=== PATIENT | male | born 1970 | race African-American/Black ===

== ENCOUNTER 2018-07-09 15:46 | Inpatient (IN) | payer OTHER ==
[2018-07-09 21:47] VITALS: BMI 27.6
--- NOTE | 2018-07-09 22:13 | HP ---
COWS - Scale Resting Pulse: 0= [place] 80 or Below Sweatin=Flushed/Facial Moisture Restless Observation: 0= Sits Still Pupil Size: 0= Normal to Room Light Bone or Joint Aches: 4=Acute Joint/Muscle Pain Runny Nose/ Eye Tearin= Runny Nose/Eyes GI Upset > 30mins: 2= Nausea/Diarrhea (diarrhea x 2) Tremor Observation: 2= Slight Tremor Visible Yawning Observation: 1= 1-2x During Session Anxiety or Irritability: 2=Irritable/Anxious Goose Flesh Skin: 3=Piloerection COWS Score: 18 CIWA Score Nausea/Vomitin-Mild Nausea/No Vomiting (vomiting x 2) Muscle Tremors: 3 Anxiety: 4-Mod. Anxious/Guarded Agitation: 3 Paroxysmal Sweats: 2 Orientation: 1-Uncertain about Date Tacttile Disturbances: 0-None Auditory Disturbances: 0-None Visual Disturbances: 0-None Headache: 3-Moderate CIWA-Ar Total Score: 17 - Admission Criteria OASAS Guidelines: Admission for Medically Managed Detox: Requires at least one of the followin. CIWA greater than 12 2. Seizures within the past 24 hours 3. Delirium tremens within the past 24 hours 4. Hallucinations within the past 24 hours 5. Acute intervention needed for co occurring medical disorder 6. Acute intervention needed for co occurring psychiatric disorder 7. Severe withdrawal that cannot be handled at a lower level of care (continued vomiting, continued diarrhea, abnormal vital signs) requiring intravenous medication and/or fluids 8. Admission ROS [facility] Chief Complaint: Heroin and alcohol withdrawal symptoms Allergies/Adverse Reactions: Allergies Allergy/AdvReac Type Severity Reaction Status Date / Time No Known Drug Allergies Allergy Verified 07/09/18 21:39 seafood Allergy Severe Rash Uncoded 07/09/18 21:39 History of Present Illness: 48 years old male with a long history of alcohol and heroin dependence is seeking admission to detox. Patient reports that he was at [facility] a year ago and reports insignificant period of sobriety. This is his first time and first admission to [facility]. He has medical history of asthma, hypertension and depression. He reports suicide attempt in 2015 and denies suicidal ideation at this time. Exam Limitations: No Limitations - Ebola screening Have you traveled outside of the country in the last 21 days: No Have you had contact with anyone from an Ebola affected area: No Have you been sick,other than usual withdrawal symptoms: No Do you have a fever: No - Review of Systems Constitutional: Chills, Loss of Appetite, Malaise, Night Sweats, Changes in sleep, Weakness EENT: reports: Nose Congestion Respiratory: reports: No Symptoms reported Cardiac: reports: No Symptoms Reported GI: reports: Diarrhea, Nausea, Poor Appetite, Poor Fluid Intake, Vomiting : reports: No Symptoms Reported Musculoskeletal: reports: Back Pain, Joint Pain, Muscle Pain Integumentary: reports: Dryness, Flushing Neuro: reports: Headache, Tremors Endocrine: reports: No Symptoms Reported Hematology: reports: No Symptoms Reported Psychiatric: reports: Mood/Affect Appropiate, Anxious Other Systems: Reviewed and Negative Patient History - Patient Medical History Hx Anemia: No Hx Asthma: Yes (Albuterol) Hx Chronic Obstructive Pulmonary Disease (COPD): No Hx Cancer: No Hx Cardiac Disorders: No Hx Congestive Heart Failure: No Hx Hypertension: Yes (Clonidine ) Hx Hypercholesterolemia: No Hx Pacemaker: No HX Cerebrovascular Accident: No Hx Seizures: No Hx Dementia: No Hx Diabetes: No Hx Gastrointestinal Disorders: No Hx Liver Disease: No Hx Genitourinary Disorders: No Hx Sexually Transmitted Disorders: No Hx Renal Disease (ESRD): No Hx Thyroid Disease: No Hx Human Immunodeficiency Virus (HIV): No (Negative 2017) Hx Hepatitis C: No Hx Depression: Yes (Trazodone) Hx Suicide Attempt: Yes (Attempt 2014, denies suicidal ideation at this time) Hx Bipolar Disorder: Yes (Seroquel) Hx Schizophrenia: No - Patient Surgical History Past Surgical History: No - PPD History Previous Implant?: Yes Documented Results: Negative w/o proof Implanted On Prior R Admission?: No PPD to be Administered?: Yes - Reproductive History Patient is a Female of Child Bearing Age (11 -55 yrs old): No (Male) - Smoking Cessation Smoking history: Current every day smoker Have you smoked in the past 12 months: Yes Aproximately how many cigarettes per day: 20 Hx Chewing Tobacco Use: No Initiated information on smoking cessation: Yes 'Breaking Loose' booklet given: 07/09/18 - Substance & Tx. History Hx Alcohol Use: Yes Hx Substance Use: Yes Substance Use Type: Alcohol, Heroin, Opiates - Substances abused Heroin Substance route: Inhalation Frequency: Daily Amount used: 10 bags Age of first use: 20 Date of last use: 07/09/18 Alcohol Substance route: Oral Frequency: Daily Amount used: radha 1/2 pint, beer 2 of 24 oz Age of first use: 13 Date of last use: 07/08/18 Family Disease History - Family Disease History Family History: Denies Admission Physical Exam [facility] - Vital Signs Vital Signs: Vital Signs - 24 hr 07/09/18 21:42 Temperature 97.9 F Pulse Rate 63 Respiratory 16 Rate Blood Pressure 134/93 - Physical General Appearance: Yes: Moderate Distress, Tremorous, Irritable, Anxious HEENTM: Yes: Normal ENT Inspection, Normal Voice, SARAH Respiratory: Yes: Lungs Clear, Normal Breath Sounds, No Respiratory Distress Neck: Yes: Supple Breast: Yes: Breast Exam Deferred Cardiology: Yes: Regular Rate Abdominal: Yes: Normal Bowel Sounds, Soft Genitourinary: Yes: Within Normal Limits Back: Yes: Normal Inspection Musculoskeletal: Yes: Back pain, Muscle Pain Extremities: Yes: Tremors Neurological: Yes: Alert, Normal Mood/Affect Integumentary: Yes: Warm Lymphatic: Yes: Within Normal Limits - Diagnostic (1) Asthma Current Visit: Yes Status: Chronic Qualifiers: Asthma severity: mild Asthma persistence: intermittent (2) Hypertension Current Visit: Yes Status: Chronic Qualifiers: Hypertension type: essential hypertension Qualified Code(s): I10 - Essential (primary) hypertension (3) Depression Current Visit: Yes Status: Chronic Qualifiers: Depression Type: unspecified Qualified Code(s): F32.9 - Major depressive disorder, single episode, unspecified (4) Nicotine dependence Current Visit: Yes Status: Chronic Qualifiers: Nicotine product type: cigarettes Substance use status: uncomplicated Qualified Code(s): F17.210 - Nicotine dependence, cigarettes, uncomplicated (5) Opioid dependence with withdrawal Current Visit: Yes Status: Acute (6) Alcohol dependence with uncomplicated withdrawal Current Visit: Yes Status: Acute Cleared for Admission [facility] - Detox or Rehab [facility] Level of Care: Medically Managed Detox Regimen/Protocol: Methadone/Librium Inpatient Rehab Admission - Rehab Decision to Admit Inpatient rehab admission?: No
[2018-07-09] MEDS ORDERED: MAGNESIUM HYDROX 2400MG/30ML ORAL SUSPENSION 30 ML CUP PO PRN (22:22)
[2018-07-09] MEDS ORDERED: MELATONIN 5 MG TABLETS PO PRN (22:22)
[2018-07-09] MEDS ORDERED: METHOCARBAMOL 500 MG TABLET PO PRN (22:22)
[2018-07-09] MEDS ORDERED: BISMUTH SUBSALICYLATE 524 MG/30 ML UD PO PRN (22:22)
[2018-07-09] MEDS ORDERED: chlordiazePOXIDE HCL 25 MG CAPSULE PO PRN (22:22)
[2018-07-09] MEDS ORDERED: NICOTINE POLACRILEX 2 MG GUM BUC PRN (22:22)
[2018-07-09] MEDS ORDERED: cloNIDine HCL 0.1 MG TABLET PO PRN (22:22)
[2018-07-09] MEDS ORDERED: hydrOXYzine PAMOATE 25 MG CAPSULE (FP) PO PRN (22:22)
[2018-07-09] MEDS ORDERED: ACETAMINOPHEN 325 MG TABLET (FP) PO PRN ×2 (22:22)
[2018-07-09] MEDS ORDERED: MENTHOL/PHENOL 1 EACH UD MM PRN (22:22)
[2018-07-09] MEDS ORDERED: IBUPROFEN 400 MG TABLET (FP) PO PRN (22:22)
[2018-07-09] MEDS ORDERED: MAGNESIUM CITRATE 300 ML BOTTLE PO PRN (22:22)
[2018-07-09] MEDS ORDERED: MAG HYDROX/AL HYDROX/SIMETH 30 ML UNIT-DOSE CUP PO PRN (22:22)
[2018-07-09] MEDS ORDERED: ALBUTEROL SO4 8 GM HFA INHALER IH PRN (22:30)
[2018-07-09] MEDS ORDERED: METHADONE HCL 10 MG TABLET (FOR DETOX USE ONLY) PO ONE (23:00)
[2018-07-09] MEDS: chlordiazePOXIDE HCL 25 MG CAPSULE PO SCH (23:39)
[2018-07-10] MEDS: chlordiazePOXIDE HCL 25 MG CAPSULE PO SCH ×4 (06:18→22:07)
[2018-07-10] MEDS ORDERED: METHADONE HCL 10 MG TABLET (FOR DETOX USE ONLY) PO ONE (10:00)
--- NOTE | 2018-07-10 10:31 | EKG ---
Test Reason : Blood Pressure : / mmHG Vent. Rate : 054 BPM Atrial Rate : 054 BPM P-R Int : 128 ms QRS Dur : 112 ms QT Int : 434 ms P-R-T Axes : 075 068 052 degrees QTc Int : 411 ms SINUS BRADYCARDIA POSSIBLE LEFT ATRIAL ENLARGEMENT INCOMPLETE RIGHT BUNDLE BRANCH BLOCK BORDERLINE ECG NO PREVIOUS ECGS AVAILABLE Confirmed by ESTHER SCOTT MD ([id number]) on 07/10/2018 10:31:22 AM Referred By: Confirmed By:ESTHER SCOTT MD
[2018-07-10] MEDS: cloNIDine HCL 0.1 MG TABLET PO SCH ×2 (10:38→22:07)
[2018-07-10] MEDS: NICOTINE 14 MG/24 HOURS TOPICAL PATCH TD SCH (10:39)
[2018-07-10] MEDS: PRENATAL VITAMINS W/ FOLIC ACID TABLET (FP) PO SCH (10:41)
[2018-07-10] MEDS ORDERED: cloNIDine HCL 0.1 MG TABLET PO PRN (10:53)
[2018-07-10] MEDS ORDERED: hydrOXYzine PAMOATE 25 MG CAPSULE (FP) PO PRN (10:53)
--- NOTE | 2018-07-10 10:56 | PN ---
[facility] CIWA - CIWA Score Nausea/Vomitin-Mild Nausea/No Vomiting Muscle Tremors: 2 Anxiety: 1-Mildly Anxious Agitation: 1-Slight > Activity Paroxysmal Sweats: 1-Minimal Palms Moist Orientation: 0-Oriented Tacttile Disturbances: 0-None Auditory Disturbances: 0-None Visual Disturbances: 0-None Headache: 0-None Present CIWA-Ar Total Score: 6 [facility] COWS - Scale Resting Pulse: 1= [place] 81-100 Sweatin= Chills/Flushing Restless Observation: 1= Difficult to Sit Still Pupil Size: 1= Pupils >than Normal Bone or Joint Aches: 1= Mild Discomfort Runny Nose/ Eye Tearin= Nasal Congestion GI Upset > 30mins: 1= Stomach Cramp Yawning Observation: 0= None Anxiety or Irritability: 1=Feels Anxious/Irritable Goose Flesh Skin: 3=Piloerection [facility] Progress Note (SOAP) Subjective: pt states he feels like he needs more methadone for OUD- day #2 of admission O: Vital Signs - 24 hr 07/09/18 07/09/18 07/10/18 21:42 23:39 00:30 Temperature 97.9 F 99.1 F Pulse Rate 63 57 L Respiratory 16 18 18 Rate Blood Pressure 134/93 148/86 07/10/18 07/10/18 07/10/18 03:30 05:00 10:20 Temperature 96 F L 98.4 F Pulse Rate 71 72 Respiratory 18 18 18 Rate Blood Pressure 105/67 118/65 labs pending a/p: continue alcohol and heroin detox protocols- pt has prn med for symptomatic treatment
[2018-07-10 12:04] LABS: HEMATOCRIT 45.3 % (35.4-49); MCH 29.5 pg (25.7-33.7); MCHC 33.1 g/dl (32.0-35.9); PLATELET COUNT 273 K/MM3 (134-434); RBC 5.09 M/mm3 (4.00-5.60); RDW 13.6 % (11.9-15.9); WHITE BLOOD COUNT 8.2 K/mm3 (4.0-10.0)
[2018-07-10 12:07] LABS: ALBUMIN 3.6 g/dl (3.4-5.0); ALK PHOS 78 U/L (45-117); ANION GAP 8 MMOL/L (8-16); BILIRUBIN,TOTAL 0.4 mg/dL (0.2-1); BLOOD UREA NITROGEN 9 mg/dL (7-18); CALCIUM 9.3 mg/dL (8.5-10.1); CHLORIDE 105 mmol/L (98-107); CO2 28 mmol/L (21-32); CREATININE 1.1 mg/dL (0.55-1.3); GLUCOSE,RANDOM 158 mg/dL (74-106); POTASSIUM 3.7 mmol/L (3.5-5.1); SGOT/AST 14 U/L (15-37); SGPT/ALT 20 U/L (13-61); SODIUM 140 mmol/L (136-145); TOT PROT 6.7 g/dl (6.4-8.2)
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
[2018-07-10] MEDS ORDERED: QUEtiapine FUMARATE 100 MG TABLET (FP) PO SCH (22:00)
[2018-07-10] MEDS: THIAMINE HCL 100 MG TABLET (FP) PO SCH (22:07)
[2018-07-10] MEDS: QUEtiapine FUMARATE 50 MG TABLET PO SCH (22:07)
[2018-07-11] MEDS: chlordiazePOXIDE HCL 25 MG CAPSULE PO SCH ×3 (05:43→17:12)
[2018-07-11] MEDS ORDERED: METHADONE HCL 10 MG TABLET (FOR DETOX USE ONLY) PO ONE (10:00)
[2018-07-11] MEDS: NICOTINE 14 MG/24 HOURS TOPICAL PATCH TD SCH (10:46)
[2018-07-11] MEDS: cloNIDine HCL 0.1 MG TABLET PO SCH ×2 (10:46→21:57)
[2018-07-11] MEDS: PRENATAL VITAMINS W/ FOLIC ACID TABLET (FP) PO SCH (10:46)
--- NOTE | 2018-07-11 11:34 | PN ---
[facility] CIWA - CIWA Score Nausea/Vomitin-No Nausea/No Vomiting Muscle Tremors: 3 Anxiety: 3 Agitation: 3 Paroxysmal Sweats: 1-Minimal Palms Moist Orientation: 0-Oriented Tacttile Disturbances: 0-None Auditory Disturbances: 0-None Visual Disturbances: 0-None Headache: 0-None Present CIWA-Ar Total Score: 10 [facility] COWS - Scale Resting Pulse: 0= [place] 80 or Below Sweatin= Chills/Flushing Restless Observation: 0= Sits Still Pupil Size: 0= Normal to Room Light Bone or Joint Aches: 1= Mild Discomfort Runny Nose/ Eye Tearin= Nasal Congestion GI Upset > 30mins: 0= None Tremor Observation of Outstretched Hands: 1= Tremor [place], Not Seen Yawning Observation: 2= >3x During Session Anxiety or Irritability: 1=Feels Anxious/Irritable Goose Flesh Skin: 0=Smooth Skin COWS Score: 7 [facility] Progress Note (SOAP) Subjective: tired sweats chills last night Objective: 07/11/18 11:32 Vital Signs Temperature 97.8 F 07/11/18 09:03 Pulse Rate 62 07/11/18 09:03 Respiratory Rate 18 07/11/18 09:03 Blood Pressure 109/52 L 07/11/18 09:03 O2 Sat by Pulse Oximetry (%) Laboratory Tests 07/10/18 07/10/18 07/10/18 07:30 07:30 07:30 WBC 8.2 RBC 5.09 Hgb 15.0 Hct 45.3 MCV 89.0 MCH 29.5 MCHC 33.1 RDW 13.6 Plt Count 273 MPV 9.0 Sodium 140 Potassium 3.7 Chloride 105 Carbon Dioxide 28 Anion Gap 8 BUN 9 Creatinine 1.1 Creat Clearance w eGFR 70.86 Random Glucose 158 H Calcium 9.3 Total Bilirubin 0.4 AST 14 L ALT 20 Alkaline Phosphatase 78 Total Protein 6.7 Albumin 3.6 RPR Titer Nonreactive aaox3 ambulating no acute distress Assessment: 07/11/18 11:33 withdrawals Plan: continue detox increase fluids
[2018-07-11] MEDS: QUEtiapine FUMARATE 50 MG TABLET PO SCH (21:57)
[2018-07-11] MEDS: THIAMINE HCL 100 MG TABLET (FP) PO SCH (21:58)
[2018-07-11] MEDS: chlordiazePOXIDE HCL 10 MG CAPSULE PO SCH (22:00)
[2018-07-11] MEDS ORDERED: chlordiazePOXIDE HCL 10 MG CAPSULE PO PRN (23:00)
[2018-07-12] MEDS: chlordiazePOXIDE HCL 10 MG CAPSULE PO SCH ×3 (05:40→17:43)
[2018-07-12] MEDS ORDERED: METHADONE HCL 10 MG TABLET (FOR DETOX USE ONLY) PO ONE (10:00)
[2018-07-12] MEDS: PRENATAL VITAMINS W/ FOLIC ACID TABLET (FP) PO SCH (10:19)
[2018-07-12] MEDS: NICOTINE 14 MG/24 HOURS TOPICAL PATCH TD SCH (10:20)
[2018-07-12] MEDS: cloNIDine HCL 0.1 MG TABLET PO SCH ×2 (10:20→22:10)
[2018-07-12] MEDS: THIAMINE HCL 100 MG TABLET (FP) PO SCH (22:10)
[2018-07-12] MEDS: QUEtiapine FUMARATE 50 MG TABLET PO SCH (22:10)
[2018-07-12] MEDS ORDERED: chlordiazePOXIDE HCL 10 MG CAPSULE PO SCH (23:00)
[2018-07-13] MEDS ORDERED: METHADONE HCL 5 MG TABLET (FOR DETOX USE ONLY) PO ONE (06:00)
--- NOTE | 2018-07-13 08:52 | DS ---
[facility] Detox Discharge Summary Admission Date: 07/09/18 Discharge Date: 07/13/18 - History Present History: Alcohol Dependence, Opioid Dependence - Physical Exam Results Vital Signs: Vital Signs Temperature 97.2 F L 07/13/18 06:53 Pulse Rate 68 07/13/18 06:53 Respiratory Rate 16 07/13/18 06:53 Blood Pressure 121/85 07/13/18 06:53 O2 Sat by Pulse Oximetry (%) - Treatment Hospital Course: Detox Protocol Followed, Detoxed Safely, Responded well, Discharged Condition Good, Rehab Referral Accepted - Medication Discharge Medications: Ambulatory Orders Albuterol Sulfate Inhaler - 2 puff IN PRN 07/09/18 Clonidine HCl [Catapres] 0.1 mg PO BID 07/09/18 Quetiapine Fumarate [Seroquel] 300 mg PO HS 07/09/18 Trazodone HCl 300 mg PO HS 07/09/18 - Diagnosis (1) Alcohol dependence with uncomplicated withdrawal Current Visit: Yes Status: Chronic (2) Opioid dependence with withdrawal Current Visit: Yes Status: Chronic (3) Substance induced mood disorder Current Visit: Yes Status: Acute (4) Asthma Current Visit: Yes Status: Chronic Qualifiers: Asthma severity: mild Asthma persistence: intermittent (5) Depression Current Visit: Yes Status: Chronic Qualifiers: Depression Type: unspecified Qualified Code(s): F32.9 - Major depressive disorder, single episode, unspecified (6) Hypertension Current Visit: Yes Status: Chronic Qualifiers: Hypertension type: essential hypertension Qualified Code(s): I10 - Essential (primary) hypertension (7) Nicotine dependence Current Visit: Yes Status: Chronic Qualifiers: Nicotine product type: cigarettes Substance use status: uncomplicated Qualified Code(s): F17.210 - Nicotine dependence, cigarettes, uncomplicated - AMA Did Patient Leave Against Medical Advice: No (referred to [facility]. )
[2018-07-13 09:42] VITALS: BP 105/65; PULSE 66; TEMP 97.9
== END 2018-07-13 09:27 | disposition home or self-care (01) | DRG 773 ==
LOC: YASAS 15:46 → Y6N 22:36
PROVIDERS: ADMIT Surgery; ATTEND Surgery
PROC: HZ2ZZZZ Detoxification Services for Substance Abuse Treatment (ICD-10-PCS; principal; 2018-07-09)
DX: F10.230 Alcohol dependence with withdrawal, uncomplicated (principal); F11.23 Opioid dependence with withdrawal; F17.210 Nicotine dependence, cigarettes, uncomplicated; F19.24 Other psychoactive substance dependence with psychoactive substance-induced mood disorder; F32.9 Major depressive disorder, single episode, unspecified; I10 Essential (primary) hypertension; J45.20 Mild intermittent asthma, uncomplicated; Z91.013 Allergy to seafood
CPT/HCPCS: 36415; 80053; 85027; 86593; 93005; 93010; J0735

== ENCOUNTER 2019-10-13 20:35 | Inpatient (IN) | payer OTHER ==
--- NOTE | 2019-10-13 21:27 | HP ---
"CIWA Score Nausea/Vomitin-Mild Nausea/No Vomiting Muscle Tremors: 1-None Visible, but [place] Anxiety: 1-Mildly Anxious Agitation: 0-Normal Activity Paroxysmal Sweats: 1-Minimal Palms Moist Orientation: 0-Oriented Tacttile Disturbances: 0-None Auditory Disturbances: 0-None Visual Disturbances: 2-Mild Sensitivity Headache: 2-Mild CIWA-Ar Total Score: 8 - Admission Criteria OASAS Guidelines: Admission for Medically Managed Detox: Requires at least one of the followin. CIWA greater than 12 2. Seizures within the past 24 hours 3. Delirium tremens within the past 24 hours 4. Hallucinations within the past 24 hours 5. Acute intervention needed for co occurring medical disorder 6. Acute intervention needed for co occurring psychiatric disorder 7. Severe withdrawal that cannot be handled at a lower level of care (continued vomiting, continued diarrhea, abnormal vital signs) requiring intravenous medication and/or fluids 8. Admitting History and Physical - Smoking History Smoking history: Current every day smoker Have you smoked in the past 12 months: Yes Aproximately how many cigarettes per day: 20 - Alcohol/Substance Use Hx Alcohol Use: Yes Admission ROS [facility] Allergies/Adverse Reactions: Allergies Allergy/AdvReac Type Severity Reaction Status Date / Time fish derived Allergy Severe Rash Verified 10/13/19 21:47 shellfish derived Allergy Severe Rash Verified 10/13/19 21:47 No Known Drug Allergies Allergy Verified 10/13/19 21:47 seafood Allergy Severe Rash Uncoded 10/13/19 21:47 History of Present Illness: 49 y.o. male requesting detox from alcohol use , claims 6-pk and 1/2 pint liquor daily since since age 17 , denies significant periods of sobriety since , denies seizures , reports blackouts and tremors , falls while in toxicated . [place] and went to [facility] , had sutures to the right foot , injury to the right leg . Latest alcohol use was yesterday . benzo : xanax 2 mg 2 weeks ago MTD : BI x 3 mo , current daily dose 80 mg latest taken today . Heroin : 1 bundle /day , first age of use 21 , OD x 2 . longest sobriety PMHX : asthma tx w/ Albuterol , HTN not on meds . pain from from recent injury to the right leg, ambulating w/ cane PSHX : denies PSYCH : anxiety , bipolar d/o on Seroquel , depression , denies SI / HI This report was requested by: Dorinda Burgos | Reference #: [id number] Others' Prescriptions Patient Name: Richard Reis Date: 1970 Address: [address] [place] [address] Sex: Male Rx Written Rx Dispensed Drug Quantity Days Supply Prescriber Name Payment Method Dispenser 06/18/2019 06/18/2019 alprazolam 2 mg tablet 90 30 Cara Roth PARTS FACILITATOR [facility] 06/18/2019 06/18/2019 zolpidem tartrate 10 mg tablet 30 30 Cara Roth PARTS FACILITATOR [facility] 05/19/2019 05/19/2019 zolpidem tartrate 10 mg tablet 30 30 Cara Roth PARTS FACILITATOR [facility] 05/19/2019 05/19/2019 alprazolam 2 mg tablet 90 30 Cara Roth PARTS FACILITATOR [facility] 04/14/2019 04/14/2019 zolpidem tartrate 10 mg tablet 30 30 Cara Roth PARTS FACILITATOR [facility] 04/14/2019 04/14/2019 alprazolam 2 mg tablet 60 20 Caar Roth PARTS FACILITATOR [facility] 03/13/2019 03/14/2019 zolpidem tartrate 10 mg tablet 30 30 Cara Roth PARTS FACILITATOR [facility] 03/13/2019 03/14/2019 alprazolam 2 mg tablet 60 20 Cara Roth PARTS FACILITATOR [facility] 02/12/2019 02/12/2019 zolpidem tartrate 10 mg tablet 30 30 Cara Roth PARTS FACILITATOR [facility] 02/12/2019 02/12/2019 alprazolam 2 mg tablet 60 20 Cara Roth PARTS FACILITATOR [facility] 12/11/2018 12/19/2018 zolpidem tartrate 10 mg tablet 30 30 Cara Roth PARTS FACILITATOR [facility] 11/11/2018 11/12/2018 zolpidem tartrate 10 mg tablet 30 30 Cara Roth PARTS FACILITATOR [facility] 11/11/2018 11/12/2018 alprazolam 2 mg tablet 60 20 Cara Roth PARTS FACILITATOR Insurance [facility] Patient Name: Richard Infante Date: 1970 Address: [address] [address] Sex: Male Rx Written Rx Dispensed Drug Quantity Days Supply Prescriber Name Payment Method Dispenser 03/25/2019 03/25/2019 buprenorphine-naloxone 8-2 mg sl film 28 14 Vincent Taran Danish [facility] 01/22/2019 01/22/2019 buprenorphine-naloxone 8-2 mg sl film 60 30 Chelsea Russ SANDING MACHINE TENDER [facility] #[id number] 12/31/2018 12/31/2018 buprenorphine-naloxone 8-2 mg sl film 28 14 Chelsea Russ SANDING MACHINE TENDER [facility] #[id number] 12/23/2018 12/23/2018 buprenorphine-naloxone 8-2 mg sl film 10 10 Chelsea Russ SANDING MACHINE TENDER [facility] #[id number] 11/26/2018 12/06/2018 buprenorphine-naloxone 12-3 mg sl film 28 14 Chelsea Russ SANDING MACHINE TENDER [facility] #[id number] 11/15/2018 11/15/2018 buprenorphine-naloxone 12-3 mg sl film 14 7 Chelsea Russ SANDING MACHINE TENDER [facility] #[id number] 11/12/2018 11/12/2018 buprenorphine-naloxone 12-3 mg sl film 6 3 Chelsea Russ SANDING MACHINE TENDER [facility] #[id number] 11/04/2018 11/04/2018 buprenorphine-naloxone 12-3 mg sl film 14 7 Chelsea Russ SANDING MACHINE TENDER [facility] #[id number] 10/21/2018 10/21/2018 buprenorphine-naloxone 12-3 mg sl film 28 14 Chelsea Russ SANDING MACHINE TENDER [facility] #[id number] 10/14/2018 10/14/2018 buprenorphine-naloxone 12-3 mg sl film 14 7 Chelsea Russ SANDING MACHINE TENDER [facility] #[id number] Patient Name: Richard Infante Date: 1970 Address: [address] [place] [id number] Sex: Male Rx Written Rx Dispensed Drug Quantity Days Supply Prescriber Name Payment Method Dispenser 07/08/2019 07/12/2019 zolpidem tartrate 10 mg tablet 30 30 Burton Evans [place] Medicaid [facility] Patient Name: Richard Infante Date: 1970 Address: [address] [place] [address] [address] [place] [address] Sex: Male Rx Written Rx Dispensed Drug Quantity Days Supply Prescriber Name Payment Method Dispenser 01/08/2019 01/08/2019 zolpidem tartrate 10 mg tablet 30 30 Cara Roth PARTS FACILITATOR Insurance [facility] #[id number] 01/08/2019 01/08/2019 alprazolam 2 mg tablet 60 20 Cara Roth PARTS FACILITATOR [facility] #[id number] 12/12/2018 12/12/2018 alprazolam 2 mg tablet 60 20 Cara Roth PARTS FACILITATOR [facility] #[id number] Patient Name: Richard Infante Date: 1970 Address: [address] [place] [address] [place] [address] Sex: Male Rx Written Rx Dispensed Drug Quantity Days Supply Prescriber Name Payment Method Dispenser 09/30/2019 10/01/2019 zolpidem tartrate 10 mg tablet 30 30 Cara Roth PARTS FACILITATOR [facility] 09/30/2019 10/01/2019 alprazolam 2 mg tablet 46 23 Cara Roth PARTS FACILITATOR [facility] 09/30/2019 10/01/2019 clonazepam 1 mg tablet 30 30 Cara Roth PARTS FACILITATOR [facility] 08/27/2019 09/24/2019 zolpidem tartrate 10 mg tablet 30 30 Cara Roth PARTS FACILITATOR [facility] 09/23/2019 09/24/2019 clonazepam 1 mg tablet 7 7 Cara Roth PARTS FACILITATOR [facility] 09/23/2019 09/24/2019 zolpidem tartrate 10 mg tablet 7 7 Cara Roth PARTS FACILITATOR [facility] 09/23/2019 09/24/2019 alprazolam 2 mg tablet 14 7 Cara Roth PARTS FACILITATOR [facility] 08/27/2019 08/27/2019 alprazolam 2 mg tablet 60 30 Cara Roth PARTS FACILITATOR [facility] 07/28/2019 08/08/2019 zolpidem tartrate 10 mg tablet 30 30 Cara Roth NP Insurance [facility] 07/28/2019 07/28/2019 alprazolam 2 mg tablet 60 20 Cara Roth PARTS FACILITATOR [facility] Patient Name: Richard Infante Date: 1970 Address: [address] [place] [address] Sex: Male Rx Written Rx Dispensed Drug Quantity Days Supply Prescriber Name Payment Method Dispenser 07/04/2019 07/04/2019 buprenorphine-naloxone 8-2 mg sl film 45 15 Araceli Daniels MD Insurance [facility] 06/04/2019 06/04/2019 suboxone 8 mg-2 mg sl film 84 28 Onielliset Ziegler Jenny Insurance [facility] 05/06/2019 05/06/2019 buprenorphine-naloxone 8-2 mg sl film 28 14 Yariel Ziegler Jenny Insurance [facility] 04/22/2019 04/22/2019 buprenorphine-naloxone 8-2 mg sl film 28 14 Taran Kaur Insurance [facility] Patient Name: Richard Reis Date: 1970 Address: [address] [place] [address] Sex: Male Rx Written Rx Dispensed Drug Quantity Days Supply Prescriber Name Payment Method Dispenser 02/20/2019 02/21/2019 buprenorphine-naloxone 8-2 mg sl film 60 30 Burton Evans Medicaid [facility] Exam Limitations: Clinical Condition - Review of Systems Constitutional: Loss of Appetite EENT: reports: Hearing Loss Respiratory: reports: Cough (w/ smoking cigarettes), Wheezing (occasional ( h/o asthma )) Cardiac: reports: No Symptoms Reported GI: reports: Constipated, Nausea, Poor Appetite : reports: No Symptoms Reported Musculoskeletal: reports: Joint Pain ( right leg and foot s/p injury) Integumentary: reports: See HPI Neuro: reports: Headache, Tremors, Unsteady Gait Endocrine: reports: No Symptoms Reported Hematology: reports: No Symptoms Reported Psychiatric: reports: Orientated x3, Anxious Patient History - Patient Medical History Hx Anemia: No Hx Asthma: Yes (Albuterol) Hx Chronic Obstructive Pulmonary Disease (COPD): No Hx Cancer: No Hx Cardiac Disorders: No Hx Congestive Heart Failure: No Hx Hypertension: Yes (Clonidine ) Hx Hypercholesterolemia: No Hx Pacemaker: No HX Cerebrovascular Accident: No Hx Seizures: No Hx Dementia: No Hx Diabetes: No Hx Gastrointestinal Disorders: No Hx Liver Disease: No Hx Genitourinary Disorders: No Hx Sexually Transmitted Disorders: No Hx Renal Disease (ESRD): No Hx Thyroid Disease: No Hx Human Immunodeficiency Virus (HIV): No (Negative 2018) Hx Hepatitis C: No Hx Depression: Yes (Trazodone) Hx Suicide Attempt: Yes (Attempt 2014, denies suicidal ideation at this time) Hx Bipolar Disorder: Yes (Seroquel) Hx Schizophrenia: No - Patient Surgical History Past Surgical History: No Hx Neurologic Surgery: No Hx Cataract Extraction: No Hx Cardiac Surgery: No Hx Lung Surgery: No Hx Breast Surgery: No Hx Breast Biopsy: No Hx Abdominal Surgery: No Hx Appendectomy: No Hx Cholecystectomy: No Hx Genitourinary Surgery: No Hx Section: No Hx Orthopedic Surgery: No Anesthesia Reaction: No - PPD History Date: 07/11/18 - Smoking Cessation Smoking history: Current every day smoker Have you smoked in the past 12 months: Yes Aproximately how many cigarettes per day: 20 Hx Chewing Tobacco Use: No Initiated information on smoking cessation: No Admission Physical Exam BHS - Physical General Appearance: Yes: Mild Distress, Anxious HEENTM: Yes: EOMI, Hearing grossly Normal, Normocephalic, Normal Voice Respiratory: Yes: Chest Non-Tender, Lungs Clear, Normal Breath Sounds, No Respiratory Distress, No Accessory Muscle Use Neck: Yes: No masses,lesions,Nodules, Trachea in good position Cardiology: Yes: Regular Rhythm, Regular Rate, S1, S2 Abdominal: Yes: Non Tender, Soft Back: Yes: Decreased Range of Motion, Muscle Spasm, Other (tenderness lumbar paraspinal) Musculoskeletal: Yes: Joint Stiffness ( right knee decreased AROM , edema), Maryellen int swelling (right knee) Extremities: Yes: Tremors, Swelling (right knee) Neurological: Yes: Fully Oriented, Alert, Motor Strength 5/5, Depressed Affect Integumentary: Yes: Warm, Other ( large anterior tibial wound w/ dressing , serosanguinolent through dressing . Unable to visually inspect , no dressing change available .) - Diagnostic (1) Opioid dependence on agonist therapy Current Visit: Yes Status: Chronic (2) Alcohol dependence with uncomplicated withdrawal Current Visit: Yes Status: Chronic (3) Nicotine dependence Current Visit: Yes Status: Chronic Qualifiers: Nicotine product type: cigarettes Substance use status: uncomplicated Qualified Code(s): F17.210 - Nicotine dependence, cigarettes, uncomplicated Urine Drug Screen - Test Device Lot number: [id number] Expiration date: 02/16/20 - Control Is test valid?: Yes - Results Drug screen NEGATIVE: No Urine drug screen results: FEN-Fentanyl, MOP-Opiates, BZO-Benzodiazepines Inpatient Rehab Admission - Rehab Decision to Admit Inpatient rehab admission?: No"
[2019-10-13 21:39] VITALS: BMI 28.0
[2019-10-13] MEDS ORDERED: hydrOXYzine PAMOATE 25 MG CAPSULE (FP) PO PRN (21:58)
[2019-10-13] MEDS ORDERED: METHOCARBAMOL 500 MG TABLET PO PRN (21:58)
[2019-10-13] MEDS ORDERED: MAG HYDROX/AL HYDROX/SIMETH 30 ML UNIT-DOSE CUP PO PRN (21:58)
[2019-10-13] MEDS ORDERED: MAGNESIUM HYDROX 2400MG/30ML ORAL SUSPENSION 30 ML CUP PO PRN (21:58)
[2019-10-13] MEDS ORDERED: MAGNESIUM CITRATE 300 ML BOTTLE PO PRN (21:58)
[2019-10-13] MEDS ORDERED: MENTHOL/PHENOL 1 EACH UD MM PRN (21:58)
[2019-10-13] MEDS ORDERED: NICOTINE POLACRILEX 2 MG GUM BUC PRN (21:58)
[2019-10-13] MEDS ORDERED: ACETAMINOPHEN 325 MG TABLET (FP) PO PRN ×2 (21:58)
[2019-10-13] MEDS ORDERED: BISMUTH SUBSALICYLATE 524 MG/30 ML UD PO PRN (21:58)
[2019-10-13] MEDS ORDERED: IBUPROFEN 400 MG TABLET (FP) PO PRN (21:58)
[2019-10-13] MEDS ORDERED: cloNIDine HCL 0.1 MG TABLET PO SCH (22:00)
[2019-10-13] MEDS ORDERED: chlordiazePOXIDE HCL 25 MG CAPSULE PO PRN (22:01)
[2019-10-13] MEDS: THIAMINE HCL 100 MG TABLET (FP) PO SCH (23:07)
[2019-10-13] MEDS: MELATONIN 5 MG TABLETS PO PRN (23:07)
[2019-10-13] MEDS: cloNIDine HCL 0.1 MG TABLET PO SCH (23:07)
[2019-10-13] MEDS: chlordiazePOXIDE HCL 25 MG CAPSULE PO SCH (23:07)
[2019-10-14] MEDS: chlordiazePOXIDE HCL 25 MG CAPSULE PO SCH ×4 (05:55→22:16)
[2019-10-14] MEDS ORDERED: METHADONE HCL 40 MG DISPERSABLE TABLET PO ONE ×2 (09:15→10:00)
[2019-10-14 10:01] LABS: HEMOGLOBIN 12.4 GM/dL (11.7-16.9); MCH 29.4 pg (25.7-33.7); MCHC 32.6 g/dl (32.0-35.9); MEAN CELL VOLUME 90.2 fl (80-96); MEAN PLT VOLUME 8.3 fl (7.5-11.1); PLATELET COUNT 321 K/MM3 (134-434); RBC 4.21 M/mm3 (4.00-5.60); WHITE BLOOD COUNT 7.4 K/mm3 (4.0-10.0)
[2019-10-14 10:10] LABS: ALBUMIN 3.3 g/dl (3.4-5.0); BILIRUBIN,TOTAL 0.2 mg/dL (0.2-1); BLOOD UREA NITROGEN 14.7 mg/dL (7-18); TOT PROT 6.7 g/dl (6.4-8.2)
[2019-10-14] MEDS: LIDOCAINE 5% TOPICAL PATCH TP SCH (10:12)
[2019-10-14] MEDS: PRENATAL VITAMINS W/ FOLIC ACID TABLET (FP) PO SCH (10:12)
[2019-10-14] MEDS: cloNIDine HCL 0.1 MG TABLET PO SCH ×2 (10:12→22:15)
[2019-10-14] MEDS: NICOTINE 7 MG/24 HOURS TOPICAL PATCH TD SCH (10:13)
--- NOTE | 2019-10-14 10:37 | PN ---
[facility] CIWA - CIWA Score Nausea/Vomitin-Mild Nausea/No Vomiting Muscle Tremors: 2 Anxiety: 2 Agitation: 2 Paroxysmal Sweats: 2 Orientation: 0-Oriented Tacttile Disturbances: 1-Very Mild Itch/Numbness Auditory Disturbances: 0-None Visual Disturbances: 2-Mild Sensitivity Headache: 0-None Present CIWA-Ar Total Score: 12 S Progress Note (SOAP) Subjective: 49 years old male admitted on 10/13/19 for alcohol benzo withdrawal sx management treating with librium detox regiment ambulating with cane slow steady methadone 80mg po today around 10 am will received methadone 80mg po around 6am report chronic back pain lidocaine patch daily Objective: 10/14/19 10:42 Vital Signs - 24 hr 10/13/19 10/13/19 10/13/19 21:37 22:17 23:09 Temperature 98.2 F 98.2 F 97.5 F L Pulse Rate 77 77 78 Respiratory 18 18 18 Rate Blood Pressure 131/82 131/82 131/83 O2 Sat by Pulse 99 Oximetry (%) 10/14/19 10/14/19 06:44 08:30 Temperature 97.9 F 97.1 F L Pulse Rate 74 76 Respiratory 16 16 Rate Blood Pressure 115/76 102/62 O2 Sat by Pulse 97 97 Oximetry (%) Laboratory Tests 10/14/19 10/14/19 08:00 08:00 WBC 7.4 RBC 4.21 Hgb 12.4 Hct 38.0 D MCV 90.2 MCH 29.4 MCHC 32.6 RDW 14.0 Plt Count 321 MPV 8.3 Sodium 141 Potassium 4.0 Chloride 105 Carbon Dioxide 30 Anion Gap 7 L BUN 14.7 Creatinine 1.0 Est GFR (CKD-EPI)AfAm 100.55 Est GFR (CKD-EPI)NonAf 86.76 Random Glucose 97 Calcium 9.0 Total Bilirubin 0.2 AST 17 ALT 18 Alkaline Phosphatase 80 Total Protein 6.7 Albumin 3.3 L 10/14/19 10:42 covid pending Assessment: 10/14/19 10:42 alcohol and benzo withdrawal mr mcclain receives monthly xanax 2 mg bid and klonopin 1mg od last filled 09/30/19 Plan: librium regiment discussing risks of alcohol mixed with benzo
[2019-10-14] MEDS: THIAMINE HCL 100 MG TABLET (FP) PO SCH (22:16)
[2019-10-14] MEDS: LIDOCAINE PATCH REMOVAL MC SCH (22:17)
[2019-10-15] MEDS: chlordiazePOXIDE HCL 25 MG CAPSULE PO SCH ×4 (05:42→22:06)
[2019-10-15] MEDS: METHADONE HCL 40 MG DISPERSABLE TABLET PO SCH (05:42)
--- NOTE | 2019-10-15 10:32 | PN ---
S CIWA - CIWA Score Nausea/Vomitin-Mild Nausea/No Vomiting Muscle Tremors: 2 Anxiety: 2 Agitation: 1-Slight > Activity Paroxysmal Sweats: 1-Minimal Palms Moist Orientation: 0-Oriented Tacttile Disturbances: 0-None Auditory Disturbances: 0-None Visual Disturbances: 0-None Headache: 0-None Present CIWA-Ar Total Score: 7 BHS Progress Note (SOAP) Subjective: 49 years old male admitted on 10/13/19 for alcohol and benzo withdrawal sx management treating with librium detox regiment ambulating with cane slow steady gaits feeling tired Vital Signs - 24 hr 10/14/19 10/14/19 10/14/19 12:43 16:46 20:41 Temperature 98 F 97.3 F L 97.7 F Pulse Rate 81 67 66 Respiratory 18 18 18 Rate Blood Pressure 109/72 118/75 113/71 O2 Sat by Pulse 97 96 Oximetry (%) 10/15/19 10/15/19 05:53 08:38 Temperature 97.5 F L 97.1 F L Pulse Rate 76 68 Respiratory 18 18 Rate Blood Pressure 102/52 L 101/68 O2 Sat by Pulse 99 Oximetry (%) set clonidine parameter hold 10 am clonidine 0.1 today received methadone 80mg po today mr mcclain is receiving monthly xanax and clonipine last filled 09/30/19 Objective: 10/15/19 10:36 Laboratory Tests 10/13/19 10/14/19 10/14/19 20:40 08:00 08:00 WBC 7.4 RBC 4.21 Hgb 12.4 Hct 38.0 D MCV 90.2 MCH 29.4 MCHC 32.6 RDW 14.0 Plt Count 321 MPV 8.3 Sodium Potassium Chloride Carbon Dioxide Anion Gap BUN Creatinine Est GFR (CKD-EPI)AfAm Est GFR (CKD-EPI)NonAf Random Glucose Calcium Total Bilirubin AST ALT Alkaline Phosphatase Total Protein Albumin Syphilis Serology Reactive A* RPR Titer COVID-19 (HERB) Not detected 10/14/19 10/14/19 08:00 08:00 WBC RBC Hgb Hct MCV MCH MCHC RDW Plt Count MPV Sodium 141 Potassium 4.0 Chloride 105 Carbon Dioxide 30 Anion Gap 7 L BUN 14.7 Creatinine 1.0 Est GFR (CKD-EPI)AfAm 100.55 Est GFR (CKD-EPI)NonAf 86.76 Random Glucose 97 Calcium 9.0 Total Bilirubin 0.2 AST 17 ALT 18 Alkaline Phosphatase 80 Total Protein 6.7 Albumin 3.3 L Syphilis Serology RPR Titer Reactive 1:1 H D COVID-19 (HERB) lab noted syphilis contacted treated Assessment: 10/15/19 10:37 alcohol and benzo withdrawal 10/15/19 10:40 methadone maintenance program xanax and klonipine monthly prescription 10/15/19 10:40 Plan: librium regiment
[2019-10-15] MEDS: LIDOCAINE 5% TOPICAL PATCH TP SCH (10:35)
[2019-10-15] MEDS: NICOTINE 7 MG/24 HOURS TOPICAL PATCH TD SCH (10:35)
[2019-10-15] MEDS: PRENATAL VITAMINS W/ FOLIC ACID TABLET (FP) PO SCH (10:36)
[2019-10-15] MEDS: cloNIDine HCL 0.1 MG TABLET PO SCH ×2 (10:43→22:06)
[2019-10-15] MEDS: LIDOCAINE PATCH REMOVAL MC SCH (22:06)
[2019-10-15] MEDS: THIAMINE HCL 100 MG TABLET (FP) PO SCH (22:06)
[2019-10-15] MEDS: MELATONIN 5 MG TABLETS PO PRN (22:07)
[2019-10-16] MEDS ORDERED: chlordiazePOXIDE HCL 10 MG CAPSULE PO PRN
[2019-10-16] MEDS ORDERED: chlordiazePOXIDE HCL 10 MG CAPSULE PO SCH (05:00)
[2019-10-16] MEDS: METHADONE HCL 40 MG DISPERSABLE TABLET PO SCH (05:38)
--- NOTE | 2019-10-16 09:08 | PN ---
S CIWA - CIWA Score Nausea/Vomitin-Mild Nausea/No Vomiting Muscle Tremors: 1-None Visible, but [place] Anxiety: 1-Mildly Anxious Agitation: 0-Normal Activity Paroxysmal Sweats: 1-Minimal Palms Moist Orientation: 0-Oriented Tacttile Disturbances: 1-Very Mild Itch/Numbness Auditory Disturbances: 0-None Visual Disturbances: 1-Very Mild Sensitivity Headache: 0-None Present CIWA-Ar Total Score: 6 BHS Progress Note (SOAP) Subjective: 49 years old male admitted on 10/13/19 for alcohol and benzo withdrawal sx management treating with librium detox regimnent requests valium for alcohol and benzo withdrawal "librium not working" discontinue librium begin valium as regiment continue methadone 80 mg po daily ambulating with cane slow steady requests to be discharge on 10/18/19 early around 10 or 12 am "I have to go to the post office" Objective: 10/16/19 10:50 Vital Signs - 24 hr 10/15/19 10/15/19 10/15/19 12:36 16:45 20:32 Temperature 97.1 F L 97.3 F L 97.5 F L Pulse Rate 66 67 67 Respiratory 18 18 18 Rate Blood Pressure 100/61 119/79 125/80 O2 Sat by Pulse 95 100 Oximetry (%) 10/16/19 10/16/19 06:36 09:15 Temperature 98.0 F 96.2 F L Pulse Rate 65 73 Respiratory 18 18 Rate Blood Pressure 107/66 124/67 O2 Sat by Pulse 99 99 Oximetry (%) Laboratory Tests 10/13/19 10/14/19 10/14/19 20:40 08:00 08:00 WBC 7.4 RBC 4.21 Hgb 12.4 Hct 38.0 D MCV 90.2 MCH 29.4 MCHC 32.6 RDW 14.0 Plt Count 321 MPV 8.3 Sodium Potassium Chloride Carbon Dioxide Anion Gap BUN Creatinine Est GFR (CKD-EPI)AfAm Est GFR (CKD-EPI)NonAf Random Glucose Calcium Total Bilirubin AST ALT Alkaline Phosphatase Total Protein Albumin Syphilis Serology Reactive A* RPR Titer COVID-19 (HERB) Not detected 10/14/19 10/14/19 08:00 08:00 WBC RBC Hgb Hct MCV MCH MCHC RDW Plt Count MPV Sodium 141 Potassium 4.0 Chloride 105 Carbon Dioxide 30 Anion Gap 7 L BUN 14.7 Creatinine 1.0 Est GFR (CKD-EPI)AfAm 100.55 Est GFR (CKD-EPI)NonAf 86.76 Random Glucose 97 Calcium 9.0 Total Bilirubin 0.2 AST 17 ALT 18 Alkaline Phosphatase 80 Total Protein 6.7 Albumin 3.3 L Syphilis Serology RPR Titer Reactive 1:1 H D COVID-19 (HERB) 10/16/19 10:50 syphilis contacted treated rejects penicilline boost IM Assessment: 10/16/19 10:51 alcohol and benzo withdrawal methadone maintenance program Plan: valium regiment methadone 80mg po daily
[2019-10-16] MEDS: LIDOCAINE 5% TOPICAL PATCH TP SCH (10:24)
[2019-10-16] MEDS: PRENATAL VITAMINS W/ FOLIC ACID TABLET (FP) PO SCH (10:25)
[2019-10-16] MEDS: cloNIDine HCL 0.1 MG TABLET PO SCH ×2 (10:25→22:15)
[2019-10-16] MEDS: NICOTINE 7 MG/24 HOURS TOPICAL PATCH TD SCH (10:25)
[2019-10-16] MEDS ORDERED: diazePAM 5 MG TABLET PO PRN (11:00)
[2019-10-16] MEDS ORDERED: MASKS NR ONE (11:19)
[2019-10-16] MEDS: diazePAM 5 MG TABLET PO SCH ×2 (14:20→22:15)
[2019-10-16] MEDS: MELATONIN 5 MG TABLETS PO PRN (22:15)
[2019-10-16] MEDS: THIAMINE HCL 100 MG TABLET (FP) PO SCH (22:15)
[2019-10-16] MEDS: LIDOCAINE PATCH REMOVAL MC SCH (22:15)
[2019-10-17] MEDS ORDERED: diazePAM 5 MG TABLET PO PRN (00:01)
[2019-10-17] MEDS ORDERED: chlordiazePOXIDE HCL 10 MG CAPSULE PO SCH (05:00)
[2019-10-17] MEDS: METHADONE HCL 40 MG DISPERSABLE TABLET PO SCH (05:55)
[2019-10-17] MEDS: diazePAM 5 MG TABLET PO SCH ×2 (05:55→17:32)
[2019-10-17] MEDS ORDERED: FAMOTIDINE 20 MG TABLET PO SCH (10:00)
--- NOTE | 2019-10-17 10:15 | PN ---
S CIWA - CIWA Score Nausea/Vomitin-No Nausea/No Vomiting Muscle Tremors: 2 Anxiety: 2 Agitation: 2 Paroxysmal Sweats: No Perspiration Orientation: 0-Oriented Tacttile Disturbances: 0-None Auditory Disturbances: 0-None Visual Disturbances: 0-None Headache: 1-Very Mild CIWA-Ar Total Score: 7 BHS Progress Note (SOAP) Subjective: alert,irritable,anxious,interrupted sleep,aching pain in the back,right leg,ambulation with cane Objective: 10/17/19 10:17 Vital Signs Temperature 97.7 F 10/17/19 08:38 Pulse Rate 62 10/17/19 08:38 Respiratory Rate 18 10/17/19 08:38 Blood Pressure 107/71 10/17/19 08:38 O2 Sat by Pulse Oximetry (%) 99 10/17/19 06:26 Assessment: 10/17/19 10:17 Vital Signs Temperature 97.7 F 10/17/19 08:38 Pulse Rate 62 10/17/19 08:38 Respiratory Rate 18 10/17/19 08:38 Blood Pressure 107/71 10/17/19 08:38 O2 Sat by Pulse Oximetry (%) 99 10/17/19 06:26 10/17/19 10:17 withdrawal symptom Plan: continue detox valium regimen,continue methadone maintenance 80 mgs/day,discharge in am
[2019-10-17] MEDS: cloNIDine HCL 0.1 MG TABLET PO SCH ×2 (10:19→22:08)
[2019-10-17] MEDS: LIDOCAINE 5% TOPICAL PATCH TP SCH (10:20)
[2019-10-17] MEDS: PRENATAL VITAMINS W/ FOLIC ACID TABLET (FP) PO SCH (10:20)
[2019-10-17] MEDS: NICOTINE 7 MG/24 HOURS TOPICAL PATCH TD SCH (10:20)
--- NOTE | 2019-10-17 16:20 | PN ---
S Progress Note Note: Called by nurse, no Xeroform or similar bandage available. Kerlex dressing removed. PE Right foot and ankle with clean suture line Xeroform dressing over right anterior leg Serous drainage on 2 spots under/through Xeroform dressing Imp 1. Right leg injury, per pt fell one week ago Plan 1. New wrap of Kerlex applied 2. Xeroform dressing left in place 3. Pt planned discharge is tomorrow, provider can send Xeroform to his pharmacy 4. Pt has planned follow up for suture removal next week.
[2019-10-17] MEDS: MELATONIN 5 MG TABLETS PO PRN (22:08)
[2019-10-17] MEDS: LIDOCAINE PATCH REMOVAL MC SCH (22:08)
[2019-10-17] MEDS: THIAMINE HCL 100 MG TABLET (FP) PO SCH (22:08)
[2019-10-18] MEDS ORDERED: chlordiazePOXIDE HCL 10 MG CAPSULE PO ONE (05:00)
[2019-10-18] MEDS ORDERED: diazePAM 5 MG TABLET PO ONE (05:00)
[2019-10-18] MEDS: METHADONE HCL 40 MG DISPERSABLE TABLET PO SCH (05:35)
[2019-10-18 06:42] VITALS: BP 104/69; PULSE 66; TEMP 97.7
--- NOTE | 2019-10-18 14:38 | DS ---
[facility] Detox Discharge Summary Admission Date: 10/13/19 Discharge Date: 10/18/19 - History Present History: Alcohol Dependence, Opioid Dependence, MMTP Additional Comments: As per H&P: "49 y.o. male requesting detox from alcohol use , claims 6-pk and 1/2 pint liquor daily since since age 17 , denies significant periods of sobriety since , denies seizures , reports blackouts and tremors , falls while intoxicated . [place] and went to [facility] , had sutures to the right foot , injury to the right leg . Latest alcohol use was yesterday . benzo : xanax 2 mg 2 weeks ago MTD : BI x 3 mo , current daily dose 80 mg latest taken today . Heroin : 1 bundle /day , first age of use 21 , OD x 2 . longest sobriety PMHX : asthma tx w/ Albuterol , HTN not on meds . pain from from recent injury to the right leg, ambulating w/ cane PSHX : denies PSYCH : anxiety , bipolar d/o on Seroquel , depression , denies SI / HI". Pt is medically cleared and discharged today. Pt completed the detox protocol. Pt is encouraged to follow-up with an outpatient CD program and also to follow- up with his PMD which he verbalized understanding. Pt is alert and oriented x3 and in no acute respiratory distress, full ROM, and ambulatory with cane. Pertinent Past History: h/o asthma, HTN, alcohol, and heroin use disorder. - Physical Exam Results Vital Signs: Vital Signs Temperature 97.7 F 10/18/19 06:41 Pulse Rate 66 10/18/19 06:41 Respiratory Rate 18 10/18/19 06:41 Blood Pressure 104/69 10/18/19 06:41 O2 Sat by Pulse Oximetry (%) 100 10/18/19 06:41 Vital Signs 10/18/19 06:41 Temperature 97.7 F Pulse Rate 66 Respiratory 18 Rate Blood Pressure 104/69 O2 Sat by Pulse 100 Oximetry (%) Laboratory Last Values WBC 7.4 K/mm3 (4.0-10.0) 10/14/19 08:00 RBC 4.21 M/mm3 (4.00-5.60) 10/14/19 08:00 Hgb 12.4 GM/dL (11.7-16.9) 10/14/19 08:00 Hct 38.0 % (35.4-49) D 10/14/19 08:00 MCV 90.2 fl (80-96) 10/14/19 08:00 MCH 29.4 pg (25.7-33.7) 10/14/19 08:00 MCHC 32.6 g/dl (32.0-35.9) 10/14/19 08:00 RDW 14.0 % (11.9-15.9) 10/14/19 08:00 Plt Count 321 K/MM3 (134-434) 10/14/19 08:00 MPV 8.3 fl (7.5-11.1) 10/14/19 08:00 Sodium 141 mmol/L (136-145) 10/14/19 08:00 Potassium 4.0 mmol/L (3.5-5.1) 10/14/19 08:00 Chloride 105 mmol/L (98-107) 10/14/19 08:00 Carbon Dioxide 30 mmol/L (21-32) 10/14/19 08:00 Anion Gap 7 MMOL/L (8-16) L 10/14/19 08:00 BUN 14.7 mg/dL (7-18) 10/14/19 08:00 Creatinine 1.0 mg/dL (0.55-1.3) 10/14/19 08:00 Est GFR (CKD-EPI)AfAm 100.55 10/14/19 08:00 Est GFR (CKD-EPI)NonAf 86.76 10/14/19 08:00 Random Glucose 97 mg/dL (74-106) 10/14/19 08:00 Calcium 9.0 mg/dL (8.5-10.1) 10/14/19 08:00 Total Bilirubin 0.2 mg/dL (0.2-1) 10/14/19 08:00 AST 17 U/L (15-37) 10/14/19 08:00 ALT 18 U/L (13-61) 10/14/19 08:00 Alkaline Phosphatase 80 U/L (45-117) 10/14/19 08:00 Total Protein 6.7 g/dl (6.4-8.2) 10/14/19 08:00 Albumin 3.3 g/dl (3.4-5.0) L 10/14/19 08:00 Syphilis Serology Reactive (NONREACTIVE) A* 10/14/19 08:00 RPR Titer Reactive 1:1 (NONREACTIVE) H D 10/14/19 08:00 COVID-19 (HERB) Not detected (Not Detected) 10/13/19 20:40 Labs noted. Pertinent Admission Physical Exam Findings: withdrawal symptoms. - Treatment Hospital Course: Detox Protocol Followed, Detoxed Safely, Responded well, Discharged Condition Good - Medication Discharge Medications: Ambulatory Orders Quetiapine Fumarate [Seroquel] 300 mg PO HS 07/09/18 Albuterol Sulfate Inhaler - [Ventolin Hfa Inhaler -] 1 - 2 inh PO QID 10/13/19 Gabapentin 400 mg PO BID 10/13/19 - Diagnosis (1) Alcohol dependence with uncomplicated withdrawal Status: Acute (2) Asthma Status: Chronic Qualifiers: Asthma severity: mild Asthma persistence: intermittent (3) Hypertension Status: Chronic Qualifiers: Hypertension type: essential hypertension Qualified Code(s): I10 - Essential (primary) hypertension (4) Nicotine dependence Status: Chronic Qualifiers: Nicotine product type: cigarettes Substance use status: uncomplicated Qualified Code(s): F17.210 - Nicotine dependence, cigarettes, uncomplicated (5) Opioid dependence with withdrawal Status: Chronic - AMA Did Patient Leave Against Medical Advice: No
== END 2019-10-18 08:51 | disposition home or self-care (01) | DRG 773 ==
LOC: YASAS 20:35 → Y3N 22:34
PROVIDERS: ADMIT Allergy & Immunology; ATTEND Allergy & Immunology
PROC: HZ2ZZZZ Detoxification Services for Substance Abuse Treatment (ICD-10-PCS; principal; 2019-10-13)
DX: F10.230 Alcohol dependence with withdrawal, uncomplicated (principal); F11.20 Opioid dependence, uncomplicated; F13.230 Sedative, hypnotic or anxiolytic dependence with withdrawal, uncomplicated; F17.210 Nicotine dependence, cigarettes, uncomplicated; I10 Essential (primary) hypertension; J45.20 Mild intermittent asthma, uncomplicated; M54.9 Dorsalgia, unspecified; G89.29 Other chronic pain; R26.2 Difficulty in walking, not elsewhere classified; Z99.89 Dependence on other enabling machines and devices; Z91.013 Allergy to seafood; S90.921D Unspecified superficial injury of right foot, subsequent encounter; W19.XXXD Unspecified fall, subsequent encounter; Z91.5 Personal history of self-harm
CPT/HCPCS: 36415; 80053; 85027; 86593; 86780; J0735; U0003